=== PATIENT | female | born 1965 | race Caucasian/White ===

== ENCOUNTER → 2017-08-12 | Outpatient (CLI) | payer BC ==
[~2017-08-12] MED LIST: CYMBALTA 60MG60 MG PO; PRINIVIL5 MG PO; SYNTHROID0.088 MG/T PO
== END ==
LOC: MC.RAD 10:35
DX: Z12.31 Encounter for screening mammogram for malignant neoplasm of breast (principal)

== ENCOUNTER → 2018-03-17 | Outpatient (CLI) | payer BC | LOC: COL.RAD 08:15 | DX: R94.5 Abnormal results of liver function studies (principal); Z90.49 Acquired absence of other specified parts of digestive tract ==

== ENCOUNTER → 2021-01-05 | Outpatient (CLI) | payer BC | LOC: MC.RAD 14:53 | DX: Z12.31 Encounter for screening mammogram for malignant neoplasm of breast (principal) ==

== ENCOUNTER → 2023-05-05 | Outpatient (RCR) | payer BC | END | disposition home or self-care (01) | LOC: WSPT | DX: M47.816 Spondylosis without myelopathy or radiculopathy, lumbar region (principal); M43.17 Spondylolisthesis, lumbosacral region; Z98.1 Arthrodesis status ==